=== PATIENT | female | born 1980 | race Caucasian/White ===

== ENCOUNTER 2016-12-04 12:57 | Emergency (ER) | payer MEDICAID ==
[~2016-12-04] VITALS: Ht 152.4 cm; Wt 81.6 kg
[2016-12-04 13:02] VITALS: BP 110/72
[2016-12-04] MEDS ORDERED: IBUPROFEN600 MG ORAL (13:27)
[2016-12-04] MEDS ORDERED: SUDAFED 12 HOU120 M1 PO (13:27)
[2016-12-04] MEDS ORDERED: FLONASE ALLERG9.9 ML NS (13:27)
[2016-12-04 13:35] VITALS: BP 110/72
--- NOTE | 2016-12-04 16:56 | Emergency Room Report ---
History of Present Illness General Chief Complaint: Earache Source: Patient Present Illness HPI The patient is a 35-year-old female presenting for left ear pain. She states that she had nasal congestion one week prior which has continued and now developed left ear pain which began yesterday. She describes this as a 5/10 dull ache and does not radiate. She denies any changes of hearing. She also admits to feeling some facial fullness. She denies any other symptoms including fever, chills, cough, rash, sore throat Allergies: Coded Allergies: No Known Allergies (Unverified , 12/04/16) Patient History Past Medical History: see triage record Pertinent Family History: none Last Menstrual Period: on control pill Reviewed Nursing Documentation: PMH: Agreed, PSxH: Agreed Nursing Documentation-PMH History Of Psychiatric Problem: Yes - bipolar, depression, anxiety Review of Systems All Other Systems: negative except mentioned in HPI Physical Exam Vital Signs Date Time Temp Pulse Resp B/P (MAP) Pulse Ox O2 Delivery O2 Flow Rate FiO2 12/04/16 13:02 97.9 96 18 110/72 96 Room Air Sp02 EP Interpretation: reviewed, normal General Appearance: no apparent distress, alert, GCS 15, non-toxic Head: normocephalic, atraumatic Eyes: bilateral eye normal inspection, bilateral eye PERRL ENT: hearing grossly normal, normal pharynx, no angioedema, normal voice, nasal congestion Neck: full range of motion, supple/symm/no masses Respiratory: chest non-tender, lungs clear, normal breath sounds, no wheezing, speaking full sentences Cardiovascular #1: regular rate, rhythm, no edema Musculoskeletal: back normal, gait/station normal, normal range of motion, non- tender Neurologic: alert, oriented x3, responsive, motor strength/tone normal, sensory intact, speech normal Psychiatric: judgement/insight normal, memory normal, mood/affect normal, no suicidal/homicidal ideation Skin: normal color, no rash, warm/dry, well hydrated Lymphatic: no adenopathy Medical Decision Making PA Attestation Dr. Mathias is my supervising physician. Patient management was discussed with my supervising physician Diagnostic Impression: Primary Impression: Sinusitis, acute Qualified Codes: J01.00 - Acute maxillary sinusitis, unspecified ER Course The patient is a 35-year-old female presenting for left ear pain. Differential diagnoses considered but not limited to: Acute sinusitis, pharyngitis, rhinitis, bronchitis, AOM, among others PE: Afebrile. NAD HEENT exam reveals nasal congestion and TTP over maxillary sinuses. TM unremarkable. EAC unremarkable No lymphadenopathy The patient will be discharged home with a prescription for Sudafed and Flonase. She is to follow up with primary doctor. ER precautions given Last Vital Signs Date Time Temp Pulse Resp B/P (MAP) Pulse Ox O2 Delivery O2 Flow Rate FiO2 12/04/16 13:35 97.9 96 18 110/72 96 Room Air Status: improved Disposition: HOME, SELF-CARE Condition: Improved Scripts Fluticasone Propionate (Flonase Allergy Relief) 9.9 Ml [place].susp 1 ML NS DAILY, #10 ML Prov: ROSA ELENA ALEJOATung 12/04/16 Pseudoephedrine Hcl (SUDAFED 12 HOUR) 120 Mg Tablet.er 120 MG PO Q12HR, #30 TAB Prov: ROSA ELEAN ALEJO P.A. 12/04/16 Ibuprofen* (MOTRIN*) 600 Mg Tablet 600 MG ORAL Q8H Y for For Pain, #30 TAB 0 Refills Prov: AUDRAANROSA ELENA P.A. 12/04/16 Referrals: NON PHYSICIAN (PCP) Patient Instructions: Sinusitis, Adult, Earache Additional Instructions: I discussed my findings with the patient. All questions and concerns have been answered. Treatment and medication compliance have been addressed. I advised the patient that they need to follow up with PMD in 3-5 days. Return to ED if symptoms worsen, new symptoms arise such as fever, or if needed for any reason. Patient verbalized understanding of discharge instructions. ROSA ELENA ALEJO Dec 04, 2016 16:56
== END 2016-12-04 13:45 | disposition home or self-care (01) ==
LOC: EMR 13:38
DX: J01.90 Acute sinusitis, unspecified (principal); H92.02 Otalgia, left ear
CPT/HCPCS: 99284

== ENCOUNTER 2016-12-24 16:26 | Emergency (ER) | payer MEDICAID ==
[~2016-12-24] VITALS: Ht 152.4 cm; Wt 81.6 kg
[~2016-12-24 16:26] MED LIST: FLONASE ALLERG9.9 ML NS; IBUPROFEN600 MG ORAL; SUDAFED 12 HOU120 M1 PO
--- NOTE | 2016-12-24 16:33 | Emergency Room Report ---
History of Present Illness General Chief Complaint: General Complaint Source: Patient Present Illness HPI 35-year-old female presents to the emergency department for anxiety attack approximately 21 minutes ago she reports feeling short of breath and overly anxious. Patient states she has a history of anxiety and she is prescribed Ativan to be taken as needed. Patient states that she took 2 of her 0.5 mg Ativan with no relief. Patient denies chest pain, recent illness, history of cardiac problems,asthma or COPD. Patient states she has been having significant increase in stress. Patient states she is in between housing and jobs at the moment. She states she has a history of bipolar and also takes Latuda, Lamictal, Prestique. Denies SI or HI. Denies CP, Palpitations, LOC, AMS , dizziness, Changes in Vision, Sensation, paresthesias, or a sudden severe headache. Allergies: Coded Allergies: No Known Allergies (Unverified , 12/04/16) Patient History Past Medical History: see triage record, psych hx Past Surgical History: none Pertinent Family History: none Now: No Immunizations: UTD Reviewed Nursing Documentation: PMH: Agreed, PSxH: Agreed Nursing Documentation-PMH Past Medical History: No History, Except For Hx Neurological Problems: Yes - DEPRESSION, ANXIETY Review of Systems All Other Systems: negative except mentioned in HPI Physical Exam Vital Signs Date Time Temp Pulse Resp B/P (MAP) Pulse Ox O2 Delivery O2 Flow Rate FiO2 12/24/16 16:27 97.5 86 20 127/86 97 Room Air Sp02 EP Interpretation: reviewed, normal General Appearance: no apparent distress, alert, GCS 15, non-toxic Head: normocephalic, atraumatic Eyes: bilateral eye normal inspection, bilateral eye PERRL ENT: hearing grossly normal, normal voice Neck: full range of motion Respiratory: chest non-tender, lungs clear, normal breath sounds, speaking full sentences Cardiovascular #1: regular rate, rhythm, no edema, normal capillary refill Musculoskeletal: back normal, gait/station normal, normal range of motion Neurologic: alert, oriented x3, responsive, motor strength/tone normal, sensory intact, normal gait, speech normal Psychiatric: judgement/insight normal, memory normal, mood/affect normal, no suicidal/homicidal ideation, other - Pt. does not appear anxious Skin: normal color, no rash, warm/dry, well hydrated Medical Decision Making PA Attestation Dr. Avery is my supervising Physician whom patient management has been discussed with. Diagnostic Impression: Primary Impression: Anxiety reaction ER Course 35-year-old female presents to the emergency department for anxiety attack approximately 21 minutes ago she reports feeling short of breath and overly anxious. Patient states she has a history of anxiety and she is prescribed Ativan to be taken as needed. Patient states that she took 2 of her 0.5 mg Ativan with no relief. Patient denies chest pain, recent illness, history of cardiac problems,asthma or COPD. Patient states she has been having significant increase in stress. Patient states she is in between housing and jobs at the moment. She states she has a history of bipolar and also takes Latuda, Lamictal, Prestique. Denies SI or HI. Denies CP, Palpitations, LOC, AMS , dizziness, Changes in Vision, Sensation, paresthesias, or a sudden severe headache. Ddx considered but are not limited to anxiety, OK, PE, asthma, thyroid storm, hyperthyroid, EPS Vital signs: are WNL, pt. is afebrile H&PE are most consistent with anxiety attack ORDERS: none required at this time, the diagnosis is clinical ED INTERVENTIONS: - none required at this time. gave pt. reassurance that medications can take over 30 minutes to take effect. reassured pt. that her oxygenation is WNL. d/w pt. follow up her primary prescriber of her psychiatric medications to inquire about daily medications to reduce anxiety such as SSRI's. d/w pt. she will also be given [facility] mental health urgent care information. d/w pt. also that she should take her previously prescribed medications as prescribed. DISCHARGE: At this time pt. is stable for d/c to home. Will provide printed patient care instructions, and any necessary prescriptions. Care plan and follow up instructions have been discussed with the patient prior to discharge. Last Vital Signs Date Time Temp Pulse Resp B/P (MAP) Pulse Ox O2 Delivery O2 Flow Rate FiO2 12/24/16 16:27 97.5 86 20 127/86 97 Room Air Disposition: HOME, SELF-CARE Condition: Stable Patient Instructions: Medical Screening Exam Additional Instructions: Take previously prescribed medications as directed. Follow up with a Primary Care Provider in 3-5 days, even if your symptoms have resolved. --Please review list of primary care clinics, if you do not already have a primary care provider -- Review list of transitional housing, social media marketing specialist, and mental health resources provided. Return sooner to ED if new symptoms occur, or current symptoms become worse. - Please note that this Emergency Department Report was dictated using [employer] computer engineer technology software, occasionally this can lead to erroneous entry secondary to interpretation by the dictation equipment. Shari Eisenberg Dec 24, 2016 16:33
[2016-12-24 16:41] VITALS: BP 127/86
[2016-12-24 17:21] VITALS: BP 118/88
[2016-12-24 17:26] VITALS: BP 118/88
== END 2016-12-24 17:27 | disposition home or self-care (01) ==
LOC: EMR 16:35
DX: F41.1 Generalized anxiety disorder (principal); F32.9 Major depressive disorder, single episode, unspecified
CPT/HCPCS: 99283